=== PATIENT | female | born 1950 ===

== ENCOUNTER 2019-05-03 09:05 | Emergency (ER) | payer OTHER ==
[~2019-05-03] VITALS: Ht 157.5 cm; Wt 90.7 kg
[2019-05-03] MEDS ORDERED: JANUMET 50-5001 EACH PO (11:22)
== END 2019-05-03 11:31 ==
LOC: ER 09:05
DX: E11.65 Type 2 diabetes mellitus with hyperglycemia (principal)